=== PATIENT | female | born 1975 | race Caucasian/White ===

== ENCOUNTER 2019-07-28 11:58 | Emergency (ER) | payer BC ==
[2019-07-28 12:55] VITALS: BP 108/82
--- NOTE | 2019-07-28 13:09 | UC ---
Throat Pain/Nasal Jose HPI - HPI Summary HPI Summary: 43-year-old female comes in with chief complaint of 10 days of upper respiratory tract infection symptoms. Had green rhinorrhea she is also coughing up sputum. She has a frontal headache. [id number] medications are helping with the symptoms but overall she's getting worse rather than better. No recent fevers. - History of Current Complaint Chief Complaint: UCGeneralIllness Stated Complaint: COUGH,CONGESTION Time Seen by Provider: 07/28/19 13:00 Hx Last Menstrual Period: doesn't get Pain Intensity: 0 - Allergies/Home Medications Allergies/Adverse Reactions: Allergies Allergy/AdvReac Type Severity Reaction Status Date / Time Sulfa (Sulfonamide Allergy Hives Verified 07/28/19 12:55 Antibiotics) Home Medications: Home Medications Albuterol HFA INHALER* [Ventolin HFA Inhaler*] 2 puff INH Q4H PRN 07/28/19 [ History Confirmed 07/28/19] Venlafaxine EXT RELEASE CAP* [Effexor Xr CAP*] 1.5 tab PO DAILY 07/28/19 [ History Confirmed 07/28/19] PMH/Surg Hx/FS Hx/Imm Hx Previously Healthy: Yes - Surgical History Surgical History: Yes Surgery Procedure, Year, and Place: 3 c-sections; tonsils - Family History Known Family History: Positive: Non-Contributory - Social History Alcohol Use: None Substance Use Type: None Smoking Status (MU): Never Smoked Tobacco Review of Systems All Other Systems Reviewed And Are Negative: Yes Constitutional: Positive: Other - SEE HPI Skin: Positive: Negative Eyes: Positive: Negative ENT: Positive: Sore Throat, Nasal Discharge, Sinus Congestion, Sinus Pain/ Tenderness Respiratory: Positive: Cough, Other - SEE HPI Cardiovascular: Positive: Negative Gastrointestinal: Positive: Negative Motor: Positive: Negative Neurovascular: Positive: Negative Musculoskeletal: Positive: Negative Neurological: Positive: Headache Psychological: Positive: Negative Is Patient Immunocompromised?: No Physical Exam Triage Information Reviewed: Yes Appearance: No Pain Distress, Well-Nourished, Ill-Appearing - MILD Vital Signs: Initial Vital Signs Temp 98.8 F 07/28/19 12:52 Pulse 93 07/28/19 12:52 Resp 18 07/28/19 12:52 BP 108/82 07/28/19 12:52 Pulse Ox 99 07/28/19 12:52 Vital Signs Reviewed: Yes Eye Exam: Normal Eyes: Positive: Conjunctiva Clear ENT: Positive: Pharyngeal erythema, Nasal congestion, Nasal drainage, TMs normal Neck: Positive: Supple Respiratory: Positive: Lungs clear, Normal breath sounds, No respiratory distress Cardiovascular: Positive: RRR Musculoskeletal: Positive: Strength Intact, ROM Intact Neurological: Positive: Alert, Muscle Tone Normal Psychological: Positive: Age Appropriate Behavior Skin Exam: Normal Throat Pain/Nasal Course/Dx - Differential Dx/Diagnosis Provider Diagnosis: Sinusitis Discharge ED - Sign-Out/Discharge Documenting (check all that apply): Patient Departure All imaging exams completed and their final reports reviewed: No Studies - Discharge Plan Condition: Stable Disposition: HOME Prescriptions: Amoxicillin PO (*) [Amoxicillin 875 MG (*)] 875 mg PO BID #20 tab Fluticasone NASAL SPRAY 50MCG* [Flonase NASAL SPRAY 50MCG*] 2 spray BOTH NARES DAILY #1 btl Patient Education Materials: Sinusitis (ED) Forms: *Work Release Referrals: Carmelina Cruz MD [Primary Care Provider] - Additional Instructions: FOLLOW UP WITH YOUR DOCTOR IF NOT COMPLETELY IMPROVED. GET REEVALUATED SOONER IF NOT IMPROVING OR YOUR CONDITION WORSENS OR ANY QUESTIONS OR CONCERNS - Billing Disposition and Condition Condition: STABLE Disposition: Home
== END 2019-07-28 13:14 | disposition home or self-care (01) ==
LOC: UCCORT 11:58
DX: J32.9 Chronic sinusitis, unspecified (principal); R05 Cough; Z88.2 Allergy status to sulfonamides
CPT/HCPCS: 99201; G0463

== ENCOUNTER 2019-11-03 09:28 | Emergency (ER) | payer BC ==
--- OUTSIDE RECORDS SUMMARY | 2019-11-03 11:06 | XMS REPORT | Continuity of Care Document ---
:1975 External Reference #:[id number] Author Name COLT Loyd Address [address] [facility] [place] [address] Care Team Providers Name Role Phone Dayo Stock MD Care Team Information Entrepreneurship Program Director Unavailable Veronica Kelsey FNP Care Team Information Entrepreneurship Program Director [phone] Carmelina Cruz MD Care Team Information Entrepreneurship Program Director [phone] Problems Active Problems Provider Date Allergic rhinitis due to animals Cassandra Roberto M.D. Onset: 03/05/2019 Allergic rhinitis Cassandra Roberto M.D. Onset: 01/23/2017 Allergic rhinitis due to pollen Cassandra Roberto M.D. Onset: 01/23/2017 Exacerbation of mild persistent asthma Cassandra Roberto M.D. Onset: 2016 Mild persistent asthma Cassandra Roberto M.D. Onset: 01/23/2017 Social History Type Date Description Comments Sex Unknown ETOH Use Occasionally consumes alcohol Tobacco Use Start: Unknown Patient has never smoked Recreational Drug Use Denies Drug Use Allergies, Adverse Reactions, Alerts Active Allergies Reaction Severity Comments Date Sulfa Urticaria 10/19/2009 Medications Active Medications SIG Qnty Indications Ordering Date Provider Amoxicillin/Clavulana 1 by mouth twice 20tabs J30.1 Brigette Meneses, 09/03 te Potassium a day for10 days [facility] 875-125mg Tablets Symbicort Inhale 2 Puffs By 11units J45.30 Brigette Meneses, 01/23/2017 80-4.5mcg/Act Mouth Twice Daily [facility] Aerosol Probiotic 1 by mouth every Unknown Capsules day Multivitamin Unknown Tablets Proair Respiclick 2 puffs every 4 2units Brigette Meneses, hours as needed [facility] 108(90Base) mcg/Act for cough, wheeze Aerosol or shortness of breath Venlafaxine HCL Unknown 75mg Tablets Medications Administered in Office Medication SIG Qnty Indications Ordering Provider Date Injection Allergy Injection 06/19/2019 Injection Injection Allergy Injection 06/10/2019 Injection Injection Allergy Injection 05/27/2019 Injection Injection Allergy Injection 05/20/2019 Injection Injection Allergy Injection 05/13/2019 Injection Injection Allergy Injection 05/06/2019 Injection Injection Allergy Injection 04/29/2019 Injection Injection Allergy Injection 04/22/2019 Injection Injection Allergy Injection 04/10/2019 Injection Injection Allergy Injection 04/03/2019 Injection Injection Allergy Injection 03/27/2019 Injection Injection Allergy Injection 03/20/2019 Injection Injection Allergy Injection 03/13/2019 Injection Injection Allergy Injection 03/06/2019 Injection Immunizations Description No Information Available Vital Signs Date Vital Result Comment 09/03/2019 3:35pm Height 66 inches 5'6" Weight 159.00 lb Weight 72.122 kg Respiratory Rate 16 /min Heart Rate 55 /min O2 % BldC Oximetry 96 % BP Systolic 96 mmHg BP Diastolic 52 mmHg Asthma Control Test 25 BMI (Body Mass Index) 25.7 kg/m2 06/19/2019 9:59am Height 66 inches 5'6" Weight 160.00 lb Weight 72.576 kg Respiratory Rate 20 /min Heart Rate 92 /min O2 % BldC Oximetry 96 % BP Systolic 106 mmHg BP Diastolic 63 mmHg Asthma Control Test 16 Fractional Exhaled Nitric Oxide 20 BMI (Body Mass Index) 25.8 kg/m2 Results Description No Information Available Procedures Date Code Description Status 06/19/2019 59239 Injection Completed 06/19/2019 93052 Nitric Oxide Gas Determination Completed 06/19/2019 35284 Nitric Oxide Gas Determination Completed 06/19/2019 96404 Pre PFT Completed 06/10/2019 72664 Injection Completed 05/27/2019 29049 Injection Completed 05/20/2019 62455 Extract 1-10 Completed 05/20/2019 85756 Injection Completed 05/13/2019 55774 Injection Completed 05/06/2019 02288 Injection Completed 04/29/2019 71215 Injection Completed 04/22/2019 45217 Injection Completed 04/10/2019 99755 Injection Completed 04/03/2019 00826 Injection Completed 03/27/2019 00389 Injection Completed 03/20/2019 83214 Injection Completed 03/13/2019 18647 Injection Completed 03/06/2019 67011 Injection Completed 03/05/2019 39592 Extract 1-10 Completed Medical Devices Description No Information Available Encounters Type Date Location Provider Dx Diagnosis Office Visit 06/19/2019 [facility] Olamide Bullock, J30.1 Allergic rhinitis 10:00a [facility] due to pollen J30.81 Allergic rhinitis due to animal (cat) (dog) hair and dander J45.30 Mild persistent asthma, uncomplicated Assessments Date Code Description Provider 09/03/2019 J30.1 Allergic rhinitis due to pollen Brigette Uldrich, [facility] 09/03/2019 J45.30 Mild persistent asthma, uncomplicated Brigette Uldrich, [facility] 09/03/2019 J30.2 Other seasonal allergic rhinitis Brigette Uldrich, [facility] 09/03/2019 J30.89 Other allergic rhinitis Brigette Ultori, [facility] 06/19/2019 J30.1 Allergic rhinitis due to pollen Cassandra Roberto M.D. 06/19/2019 J30.1 Allergic rhinitis due to pollen Cassandra Roberto M.D. 06/19/2019 J30.81 Allergic rhinitis due to animal (cat) (dog) Cassandra Roberto M.D. hair and dander 06/19/2019 J30.1 Allergic rhinitis due to pollen CHRISTIAN Will-Pio 06/19/2019 J45.30 Mild persistent asthma, uncomplicated Cassandra Roberto M.D. 06/19/2019 J30.2 Other seasonal allergic rhinitis Cassandra Roberto M.D. 06/19/2019 J30.81 Allergic rhinitis due to animal (cat) (dog) COLT Will hair and dander 06/19/2019 J30.81 Allergic rhinitis due to animal (cat) (dog) Cassandra Roberto M.D. hair and dander 06/19/2019 J45.30 Mild persistent asthma, uncomplicated CHRISTIAN Will-C 06/19/2019 J30.89 Other allergic rhinitis Cassandra Roberto M.D. 06/19/2019 J30.1 Allergic rhinitis due to pollen Allergy Injection 06/19/2019 J30.2 Other seasonal allergic rhinitis Allergy Injection 06/19/2019 J30.81 Allergic rhinitis due to animal (cat) (dog) Allergy Injection hair and dander 06/19/2019 J30.89 Other allergic rhinitis Allergy Injection 06/10/2019 J30.1 Allergic rhinitis due to pollen Cassandra Roberto M.D. 06/10/2019 J30.1 Allergic rhinitis due to pollen Allergy Injection 06/10/2019 J30.2 Other seasonal allergic rhinitis Cassandra Roberto M.D. 06/10/2019 J30.2 Other seasonal allergic rhinitis Allergy Injection 06/10/2019 J30.81 Allergic rhinitis due to animal (cat) (dog) Cassandra Roberto M.D. hair and dander 06/10/2019 J30.81 Allergic rhinitis due to animal (cat) (dog) Allergy Injection hair and dander 06/10/2019 J30.89 Other allergic rhinitis Cassandra Roberto M.D. 06/10/2019 J30.89 Other allergic rhinitis Allergy Injection 05/27/2019 J30.1 Allergic rhinitis due to pollen Cassandra Roberto M.D. 05/27/2019 J30.1 Allergic rhinitis due to pollen Allergy Injection 05/27/2019 J30.2 Other seasonal allergic rhinitis Cassandra Roberto M.D. 05/27/2019 J30.2 Other seasonal allergic rhinitis Allergy Injection 05/27/2019 J30.81 Allergic rhinitis due to animal (cat) (dog) Cassandra Roberto M.D. hair and dander 05/27/2019 J30.81 Allergic rhinitis due to animal (cat) (dog) Allergy Injection hair and dander 05/27/2019 J30.89 Other allergic rhinitis Cassandra Roberto M.D. 05/27/2019 J30.89 Other allergic rhinitis Allergy Injection 05/20/2019 J30.1 Allergic rhinitis due to pollen Cassandra Roberto M.D. 05/20/2019 J30.1 Allergic rhinitis due to pollen Cassandra Roberto M.D. 05/20/2019 J30.2 Other seasonal allergic rhinitis Cassandra Roberto M.D. 05/20/2019 J30.1 Allergic rhinitis due to pollen Allergy Injection 05/20/2019 J30.81 Allergic rhinitis due to animal (cat) (dog) Cassandra Roberto M.D. hair and dander 05/20/2019 J30.2 Other seasonal allergic rhinitis Cassandra Roberto M.D. 05/20/2019 J30.89 Other allergic rhinitis Cassandra Roberto M.D. 05/20/2019 J30.2 Other seasonal allergic rhinitis Allergy Injection 05/20/2019 J30.81 Allergic rhinitis due to animal (cat) (dog) Cassandra Roberto M.D. hair and dander 05/20/2019 J30.81 Allergic rhinitis due to animal (cat) (dog) Allergy Injection hair and dander 05/20/2019 J30.89 Other allergic rhinitis Cassandra Roberto M.D. 05/20/2019 J30.89 Other allergic rhinitis Allergy Injection 05/13/2019 J30.1 Allergic rhinitis due to pollen Cassandra Roberto M.D. 05/13/2019 J30.1 Allergic rhinitis due to pollen Allergy Injection 05/13/2019 J30.2 Other seasonal allergic rhinitis Cassandra Roberto M.D. 05/13/2019 J30.2 Other seasonal allergic rhinitis Allergy Injection 05/13/2019 J30.81 Allergic rhinitis due to animal (cat) (dog) Cassandra Roberto M.D. hair and dander 05/13/2019 J30.81 Allergic rhinitis due to animal (cat) (dog) Allergy Injection hair and dander 05/13/2019 J30.89 Other allergic rhinitis Cassandra Roberto M.D. 05/13/2019 J30.89 Other allergic rhinitis Allergy Injection 05/06/2019 J30.1 Allergic rhinitis due to pollen Cassandra Roberto M.D. 05/06/2019 J30.1 Allergic rhinitis due to pollen Allergy Injection 05/06/2019 J30.2 Other seasonal allergic rhinitis Cassandra Roberto M.D. 05/06/2019 J30.2 Other seasonal allergic rhinitis Allergy Injection 05/06/2019 J30.81 Allergic rhinitis due to animal (cat) (dog) Cassandra Roberto M.D. hair and dander 05/06/2019 J30.81 Allergic rhinitis due to animal (cat) (dog) Allergy Injection hair and dander 05/06/2019 J30.89 Other allergic rhinitis Cassandra Roberto M.D. 05/06/2019 J30.89 Other allergic rhinitis Allergy Injection 04/29/2019 J30.1 Allergic rhinitis due to pollen Cassandra Roberto M.D. 04/29/2019 J30.1 Allergic rhinitis due to pollen Allergy Injection 04/29/2019 J30.2 Other seasonal allergic rhinitis Cassandra Roberto M.D. 04/29/2019 J30.2 Other seasonal allergic rhinitis Allergy Injection 04/29/2019 J30.81 Allergic rhinitis due to animal (cat) (dog) Cassandra Roberto M.D. hair and dander 04/29/2019 J30.81 Allergic rhinitis due to animal (cat) (dog) Allergy Injection hair and dander 04/29/2019 J30.89 Other allergic rhinitis Cassandra Roberto M.D. 04/29/2019 J30.89 Other allergic rhinitis Allergy Injection 04/22/2019 J30.1 Allergic rhinitis due to pollen Cassandra Roberto M.D. 04/22/2019 J30.1 Allergic rhinitis due to pollen Allergy Injection 04/22/2019 J30.2 Other seasonal allergic rhinitis Cassandra Roberto M.D. 04/22/2019 J30.2 Other seasonal allergic rhinitis Allergy Injection 04/22/2019 J30.81 Allergic rhinitis due to animal (cat) (dog) Cassandra Roberto M.D. hair and dander 04/22/2019 J30.81 Allergic rhinitis due to animal (cat) (dog) Allergy Injection hair and dander 04/22/2019 J30.89 Other allergic rhinitis Cassandra Roberto M.D. 04/22/2019 J30.89 Other allergic rhinitis Allergy Injection 04/10/2019 J30.1 Allergic rhinitis due to pollen Cassandra Roberto M.D. 04/10/2019 J30.1 Allergic rhinitis due to pollen Allergy Injection 04/10/2019 J30.2 Other seasonal allergic rhinitis Cassandra Roberto M.D. 04/10/2019 J30.2 Other seasonal allergic rhinitis Allergy Injection 04/10/2019 J30.81 Allergic rhinitis due to animal (cat) (dog) Cassandra Roberto M.D. hair and dander 04/10/2019 J30.81 Allergic rhinitis due to animal (cat) (dog) Allergy Injection hair and dander 04/10/2019 J30.89 Other allergic rhinitis Cassandra Roberto M.D. 04/10/2019 J30.89 Other allergic rhinitis Allergy Injection 04/03/2019 J30.1 Allergic rhinitis due to pollen Cassandra Roberto M.D. 04/03/2019 J30.1 Allergic rhinitis due to pollen Allergy Injection 04/03/2019 J30.2 Other seasonal allergic rhinitis Cassandra Roberto M.D. 04/03/2019 J30.2 Other seasonal allergic rhinitis Allergy Injection 04/03/2019 J30.81 Allergic rhinitis due to animal (cat) (dog) Cassandra Roberto M.D. hair and dander 04/03/2019 J30.81 Allergic rhinitis due to animal (cat) (dog) Allergy Injection hair and dander 04/03/2019 J30.89 Other allergic rhinitis Cassandra Roberto M.D. 04/03/2019 J30.89 Other allergic rhinitis Allergy Injection 03/27/2019 J30.1 Allergic rhinitis due to pollen Cassandra Roberto M.D. 03/27/2019 J30.1 Allergic rhinitis due to pollen Allergy Injection 03/27/2019 J30.2 Other seasonal allergic rhinitis Cassandra Roberto M.D. 03/27/2019 J30.2 Other seasonal allergic rhinitis Allergy Injection 03/27/2019 J30.81 Allergic rhinitis due to animal (cat) (dog) Cassnadra Roberto M.D. hair and dander 03/27/2019 J30.81 Allergic rhinitis due to animal (cat) (dog) Allergy Injection hair and dander 03/27/2019 J30.89 Other allergic rhinitis Cassandra Roberto M.D. 03/27/2019 J30.89 Other allergic rhinitis Allergy Injection 03/20/2019 J30.1 Allergic rhinitis due to pollen Cassandra Roberto M.D. 03/20/2019 J30.1 Allergic rhinitis due to pollen Allergy Injection 03/20/2019 J30.2 Other seasonal allergic rhinitis Cassandra Roberto M.D. 03/20/2019 J30.2 Other seasonal allergic rhinitis Allergy Injection 03/20/2019 J30.81 Allergic rhinitis due to animal (cat) (dog) Cassandra Roberto M.D. hair and dander 03/20/2019 J30.81 Allergic rhinitis due to animal (cat) (dog) Allergy Injection hair and dander 03/20/2019 J30.89 Other allergic rhinitis Cassandra Roberto M.D. 03/20/2019 J30.89 Other allergic rhinitis Allergy Injection 03/13/2019 J30.1 Allergic rhinitis due to pollen Cassandra Roberto M.D. 03/13/2019 J30.1 Allergic rhinitis due to pollen Allergy Injection 03/13/2019 J30.2 Other seasonal allergic rhinitis Cassandra Roberto M.D. 03/13/2019 J30.2 Other seasonal allergic rhinitis Allergy Injection 03/13/2019 J30.81 Allergic rhinitis due to animal (cat) (dog) Cassandra Roberto M.D. hair and dander 03/13/2019 J30.81 Allergic rhinitis due to animal (cat) (dog) Allergy Injection hair and dander 03/13/2019 J30.89 Other allergic rhinitis Cassandra Roberto M.D. 03/13/2019 J30.89 Other allergic rhinitis Allergy Injection 03/06/2019 J30.1 Allergic rhinitis due to pollen Cassandra Roberto M.D. 03/06/2019 J30.1 Allergic rhinitis due to pollen Allergy Injection 03/06/2019 J30.2 Other seasonal allergic rhinitis Cassandra Roberto M.D. 03/06/2019 J30.2 Other seasonal allergic rhinitis Allergy Injection 03/06/2019 J30.81 Allergic rhinitis due to animal (cat) (dog) Cassandra Roberto M.D. hair and dander 03/06/2019 J30.81 Allergic rhinitis due to animal (cat) (dog) Allergy Injection hair and dander 03/06/2019 J30.89 Other allergic rhinitis Cassandra Roberto M.D. 03/06/2019 J30.89 Other allergic rhinitis Allergy Injection 03/05/2019 J30.1 Allergic rhinitis due to pollen Cassandra Roberto M.D. 03/05/2019 J30.1 Allergic rhinitis due to pollen Lab 03/05/2019 J30.89 Other allergic rhinitis Cassandra Roberto M.D. 03/05/2019 J30.89 Other allergic rhinitis Lab 03/05/2019 J30.81 Allergic rhinitis due to animal (cat) (dog) Cassandra Roberto M.D. hair and dander 03/05/2019 J30.81 Allergic rhinitis due to animal (cat) (dog) Lab hair and dander 03/05/2019 J30.2 Other seasonal allergic rhinitis Cassandra Roberto M.D. 03/05/2019 J30.2 Other seasonal allergic rhinitis Lab Plan of Treatment Future Appointment(s):03/03/2020 4:00 pm - COLT Loyd at [facility] Functional Status Description No Information Available Mental Status Description No Information Available Referrals Description No Information Available
--- OUTSIDE RECORDS SUMMARY | 2019-11-03 11:06 | XMS REPORT | Summary of Care ---
:1975 Author Organization [facility] Address [address] [place] [address] Care Team Providers Name Role Phone Elvia Schulte Primary Care Provider Reason for Visit Reason Comments New Patient Consultation (Routine) Status Reason Specialty Diagnoses / Referred By Referred To Contact Procedures Contact Authorized Rheumatology Diagnoses IgA deficiency Kathleen Petit, Rheumatology Procedures consult [facility] Private [address] [place] [address] Practice [place] [address] [place], [place] [address] Phone: Encounter Details Date Type Department Care Team Description 09/11/2019 Office Visit [facility] Rheumatology Olamide Church MD IgA deficiency, [address] selective [place] [address] 2nd Floor Dx) [phone] [place] [address] [phone] Allergies Active Allergy Reactions Severity Noted Date Comments Sulfa Antibiotics Hives 05/25/2015 documented as of this encounter (statuses as of 09/11/2019) Medications Medication Sig Dispensed Refills Start End Status Date Date venlafaxine (EFFEXOR) Take 75 mg by 0 Active 75 MG tablet mouth daily alprazolam (XANAX) 0.5 Take 0.5 mg by 0 Active MG tablet mouth nightly as needed for Sleep. budesonide-formoterol Inhale 2 puffs 0 Active (SYMBICORT) 80-4.5 into the lungs MCG/ACT inhaler Two Times Daily sumatriptan (IMITREX) Take 25 mg by 0 Active 25 MG tablet mouth as needed for Migraine cetirizine (ZYRTEC) 10 Take 10 mg by 0 Active MG tablet mouth daily albuterol (PROVENTIL) Take 2.5 mg by 0 Active (2.5 MG/3ML) 0.083% nebulization nebulizer solution every 6 (six) hours as needed for Wheezing Albuterol Sulfate HFA Inhale 2 puffs 0 Active 108 (90 Base) MCG/ACT into the lungs Inhalation Aerosol every 6 (six) Solution (VENTOLIN hours as needed HFA) for Wheezing etonogestrel-ethinyl Place 1 each 0 Discontinued estradiol (NUVARING) vaginally every 019 (No longer 0.12-0.015 MG/24HR 28 needed) vaginal ring (twenty-eight) days. Insert vaginally and leave in place for 3 consecutive weeks, then remove for 1 week. buPROPion (WELLBUTRIN Take 150 mg by 0 Discontinued SR) 150 MG 12 hr mouth Two Times 019 (No longer tablet Daily. needed) FLOVENT HFA 110 0 04/29/20 Discontinued MCG/ACT inhaler 15 019 (No longer needed) DULoxetine (CYMBALTA) 0 03/22/20 Discontinued 60 MG capsule 15 019 (No longer needed) fluticasone (FLONASE) 0 01/03/20 Discontinued 50 MCG/ACT nasal spray 16 019 (No longer needed) methylPREDNIsolone 0 01/08/20 Discontinued (MEDROL, LAURA,) 4 MG 16 019 (No longer tablet needed) venlafaxine (EFFEXOR) Take 37.5 mg by 0 Discontinued 37.5 MG tablet mouth daily 019 (No longer needed) documented as of this encounter (statuses as of 09/11/2019) Active Problems Problem Noted Date Nipple discharge 01/21/2016 Other (abnormal) findings on radiological examination of breast 05/26/2015 documented as of this encounter (statuses as of 09/11/2019) Social History Tobacco Use Types Packs/Day Years Used Date Former Smoker Cigarettes 0 Smokeless Tobacco: Never Used Tobacco Cessation: Counseling Given: No Sex Assigned at Date Recorded Not on file Job Start Date Occupation Industry Not on file Not on file Not on file Travel History Travel Start Travel End No recent travel history available. documented as of this encounter Last Filed Vital Signs Vital Sign Reading Time Taken Comments Blood Pressure 107/70 09/11/2019 3:05 PM EST Pulse 85 09/11/2019 3:05 PM EST Temperature 37.1 09/11/2019 3:05 PM EST C (98.7 F) Respiratory Rate 17 09/11/2019 3:05 PM EST Oxygen Saturation 98% 09/11/2019 3:05 PM EST Inhaled Oxygen Concentration - - Weight 74.8 kg (165 lb) 09/11/2019 3:05 PM EST Height 167.6 cm (5' 6") 09/11/2019 3:05 PM EST Body Mass Index 26.63 09/11/2019 3:05 PM EST documented in this encounter Progress Notes Olamide Church MD - 09/11/2019 3:00 PM EST Subjective: Patient ID: Amalia Brown is a 43 y.o. female. HPI Patient's medications, allergies, past medical, surgical, social and family histories were reviewed and updated as appropriate. This is initial rheumatology consult requested by primary care doctor for diagnosis and management of IgA deficiency. This is a 43 year old WF with PMH as listed below who was referred by PCP for IgA deficiency. Since 2016, she has chronic gastritis and saw GI Dr. Cam. During the work up for celiac disease, she was found to have very low level IgA& lt;5. She was referred to hematology/oncologist and confirmed diagnosis of IgA deficiency but not on specific treatment. She has chronic sinus problems recent years. However, both Dr. Cam and oncologist left practice. The patient has depression, anxiety, insomnia, chronic fatigue, headache, asthma , mild arthralgia atfinger, with morning stiffness 10 minutes or so. Patient's mother has RA, fibromyalgia, MS, seizure disorder, anemia, lung disease. She used to see me but moved out of [facility]. Review of Systems Per HPI. Review of complete ROS is negative. Past Medical History: Diagnosis Date Abnormal Pap smear 1996 cryotherapy Anemia Anxiety Asthma drug therapy as needed Depression treated with drug therapy Didelphic uterus Headache Past Surgical History: Procedure Laterality Date SECTION COLONOSCOPY CRYOTHERAPY 1996 abnormal pap smear HYSTERECTOMY partial TONSILLECTOMY Family History Problem Relation Age of Onset Stroke Mother Arthritis Mother rhematoid Seizures Mother seizure disorder Colon cancer Paternal Grandmother Alcohol abuse Father Social History Tobacco Use Smoking status: Former Smoker Packs/day: 0.00 Types: Cigarettes Smokeless tobacco: Never Used Substance Use Topics Alcohol use: Not on file Drug use: Never Sulfa antibiotics Current Outpatient Medications Medication Sig Dispense Refill Albuterol Sulfate HFA 108 (90 Base) MCG/ACT Inhalation Aerosol Solution ( VENTOLIN HFA) Inhale2 puffs into the lungs every 6 (six) hours as needed for Wheezing albuterol (PROVENTIL) (2.5 MG/3ML) 0.083% nebulizer solution Take 2.5 mg by nebulization every 6 (six) hours as needed for Wheezing alprazolam (XANAX) 0.5 MG tablet Take 0.5 mg by mouth nightly as needed for Sleep. budesonide-formoterol (SYMBICORT) 80-4.5 MCG/ACT inhaler Inhale 2 puffs into the lungs Two Times Daily cetirizine (ZYRTEC) 10 MG tablet Take 10 mg by mouth daily sumatriptan (IMITREX) 25 MG tablet Take 25 mg by mouth as needed for Migraine venlafaxine (EFFEXOR) 75 MG tablet Take 75 mg by mouth daily No current facility-administered medications for this visit. Objective: Physical Exam Visit Vitals BP 107/70 Pulse 85 Temp 37.1 C (98.7 F) (Tympanic) Resp 17 Ht 1.676 m (5' 6") Wt 74.8 kg (165 lb) SpO2 98% BMI 26.63 kg/m HEENT: no facial erythema, hearing grossly intact. Chest exam: clear to auscultation, no wheezing orcrackles. Good airway entry. Heart exam: regular rate and rhythm, S1, S2 present, no murmur, rub, gallop. Extremities no cyanosis , clubbing or edema. Neuro exam: AAO*3, no focal deficits. Skin exam: Nopsoriasis or vasculitis skin rash. Joint exam: No active synovitis in both upper and lower extremityjoints. Normal gait and stance. Data reviewed: I personally reviewed old chart, labs in [facility], note and other clinical date from her PCP office. Labs done 05/05/2019 IgA<5, IgM, IgG, ferritin, iron, vitamin D, TSH, CBC, CMP were all normal. Assessment: 1. Selective IgA deficiency. Normal IgM, IgG levels. Chronic sinusitis and gastritis. 2. Family history of RA and fibromyalgia, chronic fatigue, headache, depression , anxiety, insomnia. Although, no diffused tenderness on exam. Plan: - Amalia was seen today for new patient. Diagnoses and all orders for this visit: IgA deficiency, selective - IgM serum; Future - IgE; Future - IgA; Future - IgG 1, 2, 3, and 4; Future - KALIE; Future - KALIE Specificity; Future - Rheumatoid factor; Future - CCP antiBody; Future - CCP antiBody - Rheumatoid factor - KALIE Specificity - KALIE - IgG 1, 2, 3, and 4 - IgA - IgE - IgM serum - Will discuss further management on next visit. - I spent 30 minutes with the patient. More than half the time, I discussed in detail about the nature of disease. Also discussed about the treatment options available and potential side effects. - Activities as tolerated. - Diet: Paleo diet ( no sugar, no diary, low carb diet) , more greens/vegetables , adequate hydration. - Encouraged to maintain good sleep hygiene. - Continue other medications as prescribed by PCP and other specialist. - RV in 1-2 months; above findings, analysis and plan were all discussed with the patient and questions were answered as much as possible. Thanks for the consult. documented in this encounter Plan of Treatment Date Type Specialty Care Team Description 10/31/2019 Office Visit Rheumatology Olamide Church MD [address] [place] [address] 2nd [place] [address] [phone] Name Type Priority Associated Diagnoses Order Schedule IgM serum Lab Routine IgA deficiency, selective 1 Occurrences starting 09/11/2019 until 03/11/2020 IgE Lab Routine IgA deficiency, selective 1 Occurrences starting 09/11/2019 until 03/11/2020 IgA Lab Routine IgA deficiency, selective 1 Occurrences starting 09/11/2019 until 03/11/2020 IgG 1, 2, 3, and 4 Lab Routine IgA deficiency, selective 1 Occurrences starting 09/11/2019 until 03/11/2020 KALIE Lab Routine IgA deficiency, selective 1 Occurrences starting 09/11/2019 until 03/13/2020 KALIE Specificity Lab Routine IgA deficiency, selective 1 Occurrences starting 09/11/2019 until 03/13/2020 Rheumatoid factor Lab Routine IgA deficiency, selective 1 Occurrences starting 09/11/2019 until 03/13/2020 CCP antiBody Lab Routine IgA deficiency, selective 1 Occurrences starting 09/11/2019 until 03/11/2020 Health Maintenance Due Date Last Done Comments MMR Vaccines (1 of 1 - Standard 1977 series) Pneumococcal Vaccine: Pediatrics 1982 (0 to 5 Years) and At-Risk Patients (6 to 64 Years) (1 of 3 - PCV13) DTaP,Tdap,and Td Vaccines (1 - 1983 Tdap) HIV Screening 1989 Varicella Vaccines (1 of 2 - 13+ 1989 2-dose series) Cervical Cancer Screening 5 years 1997 Influenza Vaccine 07/22/2019 Pneumococcal Vaccine: 65+ Years (1 2041 of 2 - PCV13) HIB Vaccines Aged Out No longer eligible based on patient's age to complete this topic Hepatitis A Vaccines Aged Out No longer eligible based on patient's age to complete this topic Hepatitis B Vaccines Aged Out No longer eligible based on patient's age to complete this topic IPV Vaccines Aged Out No longer eligible based on patient's age to complete this topic documented as of this encounter Results Not on filedocumented in this encounter Visit Diagnoses Diagnosis IgA deficiency, selective - Primary Selective IgA immunodeficiency documented in this encounter
[2019-11-03 11:18] VITALS: BP 108/82
--- NOTE | 2019-11-03 11:40 | UC ---
FLU HPI - HPI Summary HPI Summary: 44-year-old female with a history of asthma who started having flu symptoms yesterday with body aches, fever, mild headache, scratchy throat and cough. Her daughter was recently diagnosed with influenza. - History of Current Complaint Chief Complaint: UCRespiratory Stated Complaint: FLU SYMP Time Seen by Provider: 11/03/19 11:13 Hx Obtained From: Patient Hx Last Menstrual Period: doesn't get ?: No Onset/Duration: Gradual Onset Severity Currently: Mild Severity Initially: Mild Pain Intensity: 2 Associated Signs & Symptoms: Positive: Fever, Myalgia, Cough, Nasal Congestion, Headache Related Hx: Possible Flu/Infectious Exposure - Allergy/Home Medications Allergies/Adverse Reactions: Allergies Allergy/AdvReac Type Severity Reaction Status Date / Time Sulfa (Sulfonamide Allergy Hives Verified 11/03/19 11:11 Antibiotics) Home Medications: Home Medications Budesonide/Formote 80/4.5(NF) [Symbicort 80/4.5 (NF)] 2 eyeglass maker INH BID 11/03/19 [ History Confirmed 11/03/19] PMH/Surg Hx/FS Hx/Imm Hx Previously Healthy: Yes Respiratory History: Asthma Psychological History: Depression - Surgical History Surgical History: Yes Surgery Procedure, Year, and Place: 3 c-sections; tonsils, hysterectoy - Family History Known Family History: Positive: Non-Contributory - Social History Occupation: Employed Full-time - Patient works as a teacher Lives: With Family Alcohol Use: None Substance Use Type: None Smoking Status (MU): Never Smoked Tobacco Review of Systems All Other Systems Reviewed And Are Negative: Yes Constitutional: Positive: Fever, Chills, Fatigue ENT: Positive: Nasal Discharge Respiratory: Positive: Cough Musculoskeletal: Positive: Myalgia Is Patient Immunocompromised?: No Physical Exam Triage Information Reviewed: Yes Appearance: No Pain Distress, Well-Nourished, Ill-Appearing - Mildly ill- appearing. Vital Signs: Initial Vital Signs Temp 99.8 F 11/03/19 11:13 Pulse 101 11/03/19 11:13 Resp 20 11/03/19 11:13 BP 108/82 11/03/19 11:13 Pulse Ox 99 11/03/19 11:13 Vital Signs Reviewed: No Eyes: Positive: Conjunctiva Clear ENT: Positive: Pharynx normal, Nasal congestion, Nasal drainage, TMs normal, Uvula midline Neck: Positive: Supple, Nontender, No Lymphadenopathy Respiratory: Positive: Lungs clear, Normal breath sounds, No respiratory distress, No accessory muscle use Cardiovascular: Positive: No Murmur, Pulses Normal, Brisk Capillary Refill, Tachycardia Musculoskeletal Exam: Normal Neurological Exam: Normal Psychological Exam: Normal Skin Exam: Normal Flu Course/Dx - Course Course Of Treatment: Rapid influenza test: Positive Patient is comfortable here and nontoxic. - Differential Dx/Diagnosis Provider Diagnosis: Influenza A Discharge ED - Sign-Out/Discharge Documenting (check all that apply): Patient Departure All imaging exams completed and their final reports reviewed: No Studies - Discharge Plan Condition: Fair Disposition: HOME Prescriptions: Oseltamivir CAP* [Tamiflu CAP*] 75 mg PO BID 5 Days #10 cap Patient Education Materials: Influenza (DC) Forms: *Work Release Referrals: Carmelina Cruz MD [Primary Care Provider] - Additional Instructions: Go home and rest, increase fluids, may take Tylenol every 4 hours and Motrin every 8 hours for pain or fever. Definite follow-up with your primary care provider if no improvement in 4 or 5 days. Continue to use your albuterol inhaler 2 puffs every 4 hours as needed for tight cough or wheezing. - Billing Disposition and Condition Condition: FAIR Disposition: Home - Attestation Statements Provider Attestation: This patient was not seen by me. I was available for consult. Chart reviewed. SHAHID
[2019-11-03 11:48] LABS: Influenza A Molecular POSITIVE (Negative)
[2019-11-03 15:17] LABS: HIV 4th Generation Nonreactive (Nonreactive)
--- NOTE | 2019-11-05 10:32 | UC ---
- Progress Note Progress Note: pt called requesting a work note extension - extended to 11/08/19 Course/Dx - Diagnoses Provider Diagnoses: Influenza A Discharge ED - Sign-Out/Discharge Documenting (check all that apply): Post-Discharge Follow Up All imaging exams completed and their final reports reviewed: No Studies - Discharge Plan Condition: Fair Disposition: HOME Prescriptions: Oseltamivir CAP* [Tamiflu CAP*] 75 mg PO BID 5 Days #10 cap Patient Education Materials: Influenza (DC) Forms: *Work Release Referrals: Carmelina Cruz MD [Primary Care Provider] - Additional Instructions: Go home and rest, increase fluids, may take Tylenol every 4 hours and Motrin every 8 hours for pain or fever. Definite follow-up with your primary care provider if no improvement in 4 or 5 days. Continue to use your albuterol inhaler 2 puffs every 4 hours as needed for tight cough or wheezing. - Billing Disposition and Condition Condition: FAIR Disposition: Home
== END 2019-11-03 12:10 | disposition home or self-care (01) ==
LOC: UCCORT 09:28
DX: J10.1 Influenza due to other identified influenza virus with other respiratory manifestations (principal); J45.909 Unspecified asthma, uncomplicated; F32.9 Major depressive disorder, single episode, unspecified; Z88.2 Allergy status to sulfonamides
CPT/HCPCS: 36415; 87389; 99212; G0463

== ENCOUNTER 2020-01-01 11:43 | Emergency (ER) | payer BC ==
--- OUTSIDE RECORDS SUMMARY | 2020-01-01 12:17 | XMS REPORT | Summary of Care ---
:1975 Author Organization [facility] Address [address] [place] [id number] Care Team Providers Name Role Phone Elvia Schulte Primary Care Provider Reason for Visit Reason Comments Follow-up Encounter Details Date Type Department Care Team Description 11/13/2019 Office Visit [facility] Rheumatology Guera Church MD IgA deficiency, [address] [place] selective ([place] [address] 2nd Floor Dx) [phone] [place] [address] [phone] Allergies Active Allergy Reactions Severity Noted Date Comments Sulfa Antibiotics Hives 05/25/2015 documented as of this encounter (statuses as of 11/13/2019) Medications Medication Sig Dispensed Refills Start Date End Date Status venlafaxine Take 75 mg by mouth 0 Active (EFFEXOR) 75 MG daily tablet alprazolam (XANAX) Take 0.5 mg by mouth 0 Active 0.5 MG tablet nightly as needed for Sleep. budesonide-formotero Inhale 2 puffs into 0 Active l (SYMBICORT) 80-4.5 the lungs Two Times MCG/ACT inhaler Daily sumatriptan Take 25 mg by mouth 0 Active (IMITREX) 25 MG as needed for tablet Migraine cetirizine (ZYRTEC) Take 10 mg by mouth 0 Active 10 MG tablet daily albuterol Take 2.5 mg by 0 Active (PROVENTIL) (2.5 nebulization every 6 MG/3ML) 0.083% (six) hours as nebulizer solution needed for Wheezing Albuterol Sulfate Inhale 2 puffs into 0 Active HFA 108 (90 Base) the lungs every 6 MCG/ACT Inhalation (six) hours as Aerosol Solution needed for Wheezing (VENTOLIN HFA) documented as of this encounter (statuses as of 11/13/2019) Active Problems Problem Noted Date IgA deficiency, selective 11/13/2019 Nipple discharge 01/21/2016 Other (abnormal) findings on radiological examination of breast 05/26/2015 documented as of this encounter (statuses as of 11/13/2019) Social History Tobacco Use Types Packs/Day Years [...] Sign Reading Time Taken Comments Blood Pressure 114/72 11/13/2019 3:36 PM EST Pulse 83 11/13/2019 3:36 PM EST Temperature 37.3 11/13/2019 3:36 PM EST C (99.2 F) Respiratory Rate 17 11/13/2019 3:36 PM EST Oxygen Saturation 97% 11/13/2019 3:36 PM EST Inhaled Oxygen Concentration - - Weight 74.8 kg (165 lb) 11/13/2019 3:36 PM EST Height 167.6 cm (5' 6") 11/13/2019 3:36 PM EST Body Mass Index 26.63 11/13/2019 3:36 PM EST documented in this encounter Progress Notes Guera Church MD - 11/13/2019 3:45 PM EST Subjective: Patient ID: Amalia Brown is a 44 y.o. female. HPI This is a 44 year old WF with possible IgA deficiency came in for follow up. I first time saw her on09/11/2019. Since 2017, she has chronic gastritis and saw GI Dr. Cam. During the work up for celiac disease, she was found to have very low level IgA<5. She was referred to hematology/oncologist andconfirmed diagnosis of IgA deficiency but not on [...] to see me but moved out of [facility]. On 11/13/2019, the patient came in for follow up. Dictation on: 11/13/2019 3:58 PM by: GUERA CHURCH [[id number]] Review of Systems Per HPI. Review of [...] Current Outpatient Medications Medication Sig Dispense Refill albuterol (PROVENTIL) (2.5 MG/3ML) 0.083% nebulizer solution Take 2.5 mg by nebulization every 6 (six) hours as needed for Wheezing Albuterol Sulfate HFA 108 (90 Base) MCG/ACT [...] visit. Objective: Physical Exam Visit Vitals BP 114/72 Pulse 83 Temp 37.3 C (99.2 F) (Tympanic) Resp 17 Ht 1.676 m (5' 6") Wt 74.8 kg (165 lb) SpO2 97% BMI 26.63 kg/m HEENT: no facial erythema, hearing grossly intact. Extremities no cyanosis, clubbing or edema. Neuroexam: AAO*3, no focal deficits. Skin exam: No psoriasis or vasculitis skin rash. Joint exam: No active synovitis in both upper and lower extremity joints. Normal gait and stance. Data reviewed: I personally reviewed old chart, labs in [facility], note and other clinical date from her PCP office. Labs done 05/05/2019 IgA<5, IgM, IgG, ferritin, iron, vitamin D, TSH, CBC, CMP were all normal. Office Visit on 09/11/2019 Component Date Value Ref Range Status CCP Antibody 09/11/2019 7 0 - 20 units Final Negative Rheumatoid factor 09/11/2019 <10 <14 IU/ml Final Confirmed SSA Autoantibody 09/11/2019 158* 0 - 99 [AU]/mL Final SSB Autoantibody 09/11/2019 16 0 - 99 [AU]/mL Final Thao Autoantibody 09/11/2019 9 0 - 99 [AU]/mL Final SE[employer] ADVERTISING STRATEGIST Autoantibody 09/11/2019 15 0 - 99 U/ML Final SCL-70 Autoantibody 09/11/2019 50 0 - 99 [AU]/mL Final DOMINGA-1 Autoantibody 09/11/2019 35 0 - 99 [AU]/mL Final Double Stranded DNA Ab 09/11/2019 20 0 - 99 [IU]/mL Final Centromere antibody 09/11/2019 15 0 - 99 [AU]/mL Final Histone antibody 09/11/2019 23 0 - 99 [AU]/mL Final Homogeneous Pattern 09/11/2019 <50 0 - 49 1/dil Final Speckled Pattern 09/11/2019 <50 0 - 49 1/dil Final Peripheral Pattern 09/11/2019 <50 0 - 49 1/dil Final KALIE,Nucleolar pattern 09/11/2019 <50 0 - 49 1/dil Final Immunoglobulin G Qn, Serum 09/11/2019 1,542 700 - 1,600 mg/dL Final IgG Subclass 1 09/11/2019 737 248 - 810 mg/dL Final IgG Subclass 2 09/11/2019 537 130 - 555 mg/dL Final IgG Subclass 3 09/11/2019 151* 15 - 102 mg/dL Final IgG Subclass 4 09/11/2019 20 2 - 96 mg/dL Final Comment: (NOTE) Performed At: [facility] [address] [id number] Mookie Butler MD Ph:[phone] Performed At: [facility] [address] [id number] Derik Stokes MD Ph:[phone] IgA 09/11/2019 <5* 70 - 400 mg/dL Final Comment: (NOTE) Testing methodology currently used by [facility] has a lower linearity limit of 5 mg/dL for clinical evaluation of serum IgA levels. Some patients greater than 6 months of age, who have absolute IgA deficiency (IgA level <0.05 mg/dL), can form class-specific antibodies to IgA and may be at increased risk for anaphylactoid transfusion reactions (estimated incidence 1:20,000 - 1:50,000 transfusions). If desired, this patient may be evaluated for absolute IgA deficiency by Reference Laboratory testing. Contact Blood Bank at [phone] for further information. IgE, Serum 09/11/2019 64 <100 [IU]/mL Final IgM 09/11/2019 76 30 - 230 mg/dL Final Assessment: 1. Selective IgA deficiency. Normal IgM, IgG levels. Chronic sinusitis and gastritis. 2. Family history of RA and fibromyalgia, chronic fatigue, headache, depression , anxiety, insomnia. Although, no diffused tenderness on exam. Plan: - Amalia was seen today for follow-up. Diagnoses and all orders for this visit: IgA deficiency, selective - KALIE; Future - Sjogrens syndrome-A extractable nuclear antibody; Future - KALIE - Sjogrens syndrome-A extractable nuclear antibody - repeat KALIE and SSA at [facility]. - Activities as tolerated. - Diet: Paleo diet ( no sugar, no diary, low carb diet) , more greens/vegetables , adequate hydration. - Encouraged to maintain good sleep hygiene. - Continue other medications as prescribed by PCP and other specialist. - RV in 12 months; above findings, analysis and plan were all discussed with the patient and questions were answered as much as possible. documented in this encounter Plan of Treatment Date Type Specialty Care Team Description 11/19/2020 Office Visit Rheumatology Guera Church MD [address] [place] [address] [address] [place] [id number] [phone] Name Type Priority Associated Diagnoses Order Schedule KALIE Lab Routine IgA deficiency, 1 Occurrences starting selective 11/13/2019 until 05/15/2020 Sjogrens syndrome-A Lab Routine IgA deficiency, 1 Occurrences starting extractable nuclear selective 11/13/2019 until antibody 05/13/2020 Health Maintenance Due Date Last Done Comments MMR Vaccines (1 of 1 - Standard 1977 series) Varicella Vaccines (1 of 2 - 1977 2-dose childhood series) Pneumococcal Vaccine: Pediatrics 1982 (0 to 5 Years) and At-Risk Patients (6 to 64 Years) (1 of 3 - PCV13) DTaP,Tdap,and Td Vaccines (1 - 1983 Tdap) HIV Screening 1989 Cervical Cancer Screening 5 years 1997 Influenza [...]
[2020-01-01] MEDS ORDERED: Ipratropium 0.5MG/2.5ML NEB* 0.5 MG/2.5 ML NEB.SOLN INH ONE (15:11)
[2020-01-01] MEDS ORDERED: Albuterol 2.5 MG/3 ML NEB.SOL* (0.083%) INH ONE (15:11)
--- NOTE | 2020-01-01 15:16 | UC ---
Respiratory Complaint HPI - HPI Summary HPI Summary: 44 yo female with cough/chest tightness/wheezing x 10 days no fever she is an asthmatic and has been using her rescue inhaler frequency head due to coughing she has an IgA deficiency - History of Current Complaint Chief Complaint: UCGeneralIllness Stated Complaint: COUGH/LEGER Time Seen by Provider: 01/01/20 15:05 Hx Obtained From: Patient Hx Last Menstrual Period: doesn't get Onset/Duration: Gradual Onset, Lasting Days Timing: Constant Severity Initially: Mild Severity Currently: Moderate Pain Intensity: 8 - LEGER at its worse Pain Scale Used: 0-10 Numeric Character: Cough: Nonproductive Aggravating Factors: Nothing, Other Associated Signs And Symptoms: Positive: Wheezing, Nasal Congestion - Allergies/Home Medications Allergies/Adverse Reactions: Allergies Allergy/AdvReac Type Severity Reaction Status Date / Time Sulfa (Sulfonamide Allergy Hives Verified 01/01/20 13:20 Antibiotics) Home Medications: Home Medications Albuterol HFA INHALER* [Ventolin HFA Inhaler*] 2 puff INH Q4H PRN 07/28/19 [ History Confirmed 01/01/20] Venlafaxine EXT RELEASE CAP* [Effexor Xr CAP*] 1.5 tab PO DAILY 07/28/19 [ History Confirmed 01/01/20] Budesonide/Formote 80/4.5(NF) [Symbicort 80/4.5 (NF)] 2 women specialist INH BID 11/03/19 [ History Confirmed 01/01/20] Amoxicillin PO (*) [Amoxicillin 875 MG (*)] 875 mg PO BID #14 tab 01/01/20 [Rx] predniSONE 20 mg TAB [Deltasone 20 MG TAB*] 40 mg PO DAILY #8 tab 01/01/20 [Rx] PMH/Surg Hx/FS Hx/Imm Hx Previously Healthy: Yes Respiratory History: Asthma, Bronchitis, Pneumonia - Surgical History Surgical History: Yes Surgery Procedure, Year, and Place: 3 c-sections; tonsils, hysterectoy - Family History Known Family History: Positive: Hypertension - Social History Alcohol Use: None Substance Use Type: None Smoking Status (MU): Never Smoked Tobacco Review of Systems All Other Systems Reviewed And Are Negative: Yes Constitutional: Positive: Fatigue Skin: Positive: Negative Eyes: Positive: Negative ENT: Positive: Negative Respiratory: Positive: Cough, Other - wheezing Cardiovascular: Positive: Negative Gastrointestinal: Positive: Negative Genitourinary: Positive: Negative Motor: Positive: Negative Neurovascular: Positive: Negative Musculoskeletal: Positive: Negative Neurological/Mental Status: Positive: Negative Psychological: Positive: Negative Physical Exam Triage Information Reviewed: Yes Appearance: Well-Appearing, No Pain Distress, Well-Nourished Vital Signs: Initial Vital Signs Temp 98.9 F 01/01/20 13:15 Pulse 70 01/01/20 13:15 Resp 18 01/01/20 13:15 BP 118/80 01/01/20 13:15 Pulse Ox 100 01/01/20 13:15 Vital Signs Reviewed: Yes Eyes: Positive: Conjunctiva Clear ENT: Positive: Hearing grossly normal, Nasal congestion, TMs normal, Uvula midline. Negative: Nasal drainage, Tonsillar swelling, Tonsillar exudate, Trismus, Muffled voice, Hoarse voice, Sinus tenderness Dental Exam: Normal Neck: Positive: Supple, Nontender, No Lymphadenopathy Respiratory: Positive: No respiratory distress, No accessory muscle use, Wheezing Cardiovascular: Positive: RRR, No Murmur Abdominal Exam: Normal Bowel Sounds: Positive: Present Musculoskeletal Exam: Normal Neurological: Positive: Alert Psychological Exam: Normal Skin Exam: Normal Re-Evaluation - Re-Evaluation First Eval Re-Evaluation Time: 15:49 Change: Improved - lungs CTA Respiratory Course/Dx - Differential Dx/Diagnosis Provider Diagnosis: Acute bronchitis with bronchospasm Discharge ED - Sign-Out/Discharge Documenting (check all that apply): Patient Departure All imaging exams completed and their final reports reviewed: No Studies - Discharge Plan Condition: Stable Disposition: HOME Prescriptions: Amoxicillin PO (*) [Amoxicillin 875 MG (*)] 875 mg PO BID #14 tab predniSONE 20 mg TAB [Deltasone 20 MG TAB*] 40 mg PO DAILY #8 tab Patient Education Materials: Acute Bronchitis (ED) Forms: *Work Release Referrals: Mariela Chopra CNM [Primary Care Provider] - 4 Days (if not better) Additional Instructions: use your rescue inhaler 2 puffs 4x day for 5 days - Billing Disposition and Condition Condition: STABLE Disposition: Home
[2020-01-01 15:22] VITALS: BP 121/82
[2020-01-01] MEDS ORDERED: Ibuprofen TAB* 600 MG PO ONE (15:24)
== END 2020-01-01 16:02 | disposition home or self-care (01) ==
LOC: UCCORT 11:43
DX: J20.9 Acute bronchitis, unspecified (principal); J45.909 Unspecified asthma, uncomplicated; Z87.01 Personal history of pneumonia (recurrent); Z79.899 Other long term (current) drug therapy; Z88.2 Allergy status to sulfonamides
CPT/HCPCS: 99212; A9270-GY; G0463; J7512